=== PATIENT | female | born 1955 | race Caucasian/White ===

== ENCOUNTER 2018-08-19 08:03 | Emergency (ER) | payer MEDICARE, MEDICAID ==
[~2018-08-19] VITALS: Ht 152.4 cm; Wt 68.2 kg
[~2018-08-19 08:03] MED LIST: AMBIEN10 MG PO; AMLOPIDINE
[2018-08-19 08:11] VITALS: TEMP 98.5
[2018-08-19] MEDS ORDERED: NORVASC 5MG5 MG/TAB PO (08:33)
[2018-08-19] MEDS ORDERED: ROXICODONE 55 MG/TAB PO (08:34)
[2018-08-19] MEDS ORDERED: VALIUM 5MG T5 MG/TAB PO (08:34)
[2018-08-19] MEDS ORDERED: CATAPRES 0.1MG0.1 MG PO (08:35)
[2018-08-19] MEDS ORDERED: TENORMIN 5050 MG/TAB PO (08:36)
[2018-08-19] MEDS ORDERED: NEURONTIN300 MG/CAP PO (08:36)
[2018-08-19] MEDS ORDERED: AMBIEN 10MG10 MG PO (08:37)
[2018-08-19] MEDS ORDERED: SSD25 GM TP (08:39)
[2018-08-19 09:05] LABS: HEMATOCRIT 40.7 % (37.0-47.0); HEMOGLOBIN 12.7 g/dl (12.5-16.0); MEAN CELL VOLUME 92 fl (80.0-100.0); MEAN CORPUSCULAR HEMOGLOBIN 29 pg (27.0-31.0); MEAN CORPUSCULAR HGB CONC 31 g/dl (33.0-37.0); MEAN PLATELET VOLUME 9.2 fl (7.4-10.4); PLATELET COUNT 216 K/mm3 (130-400); RED BLOOD COUNT 4.45 M/mm3 (4.10-5.30); REDCELL DISTRIBUTION WIDTH-CV 13.3 % (11.5-14.5)
[2018-08-19 09:29] LABS: BILIRUBIN,TOTAL 0.3 mg/dL (0.0-1.0); C-REACTIVE PROTEIN 2.7 mg/dL (0.0-0.9); CALCIUM 9.3 mg/dL (8.4-10.2); CREATININE, serum 0.32 mg/dL (0.52-1.25); TOTAL PROTEIN 7.3 gm/dL (6.4-8.2)
[2018-08-19 09:55] LABS: BAND 4 % (0-10); EOSINOPHIL 1 % (0-4); LYMPHOCYTE 13 % (20.0-51.0); MYELOCYTE 1 % (0-0); NEUTROPHILS 75 % (42.0-75.2); PLATELET ESTIMATE NORMAL (NORMAL)
[2018-08-19 10:12] LABS: COLLECTION METHOD CLEAN CATCH
[2018-08-19 10:21] LABS: MUCOUS Present /lpf; PH 5 (5-8); SQUAMOUS EPITHELIAL 0-2 /hpf; URINE APPEARANCE Clear; URINE BACTERIA None Seen /hpf; URINE BILIRUBIN Negative (NEGATIVE); URINE BLOOD Negative (NEGATIVE); URINE COLOR Yellow; URINE GLUCOSE Negative (NEGATIVE); URINE KETONE Negative (NEGATIVE); URINE LEUKOCYTE ESTERASE Negative (NEGATIVE); URINE NITRATE Negative (NEGATIVE); URINE PROTEIN(semi-quant) Negative (NEGATIVE); URINE RBC 0-2 /hpf; URINE UROBILINOGEN Negative (NEGATIVE)
--- NOTE | 2018-08-19 11:57 | NUR ---
slab worker met with patient and son, Jose Antonio Gonzalez, to discuss care at home and options for a higher level of care. Currently, patient resides with her son and is approved for up to 37 1/2 hours of private duty care in the home. Patient has a chronic debilitating illness and has been confined to a wheelchair for ambulation since 2010. 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 Patient is currently receiving 25 hours of private duty a week, through the self directed care program/[facility]. Son states it is difficult to hire consistent help. Worker provided options for shelter care. Patient has medicare and medicaid. Son and patient state their preferences are 1. [facility] and 2. [facility]. It is there hope that patient can be transferred to [facility] so that patient can be treated and evaluated by her neurosurgeon, Dr Terrell Gibbons. Worker collaborated with Dr Gomez regarding the above information. Will await decision on admission to this hospital or [facility].
[2018-08-19 14:58] VITALS: BP 122/76; PULSE 74
== END 2018-08-19 16:40 | disposition short-term general hospital (02) ==
LOC: COL.ER 08:03
PROVIDERS: Emergency Medicine
DX: Q85.02 Neurofibromatosis, type 2 (principal); L89.90 Pressure ulcer of unspecified site, unspecified stage; D33.3 Benign neoplasm of cranial nerves; I63.9 Cerebral infarction, unspecified; G81.94 Hemiplegia, unspecified affecting left nondominant side
CPT/HCPCS: C1751

== ENCOUNTER 2018-10-19 16:35 | Emergency (ER) | payer MEDICARE, MEDICAID ==
[~2018-10-19] VITALS: Ht 160 cm; Wt 72.7 kg
[~2018-10-19 16:35] MED LIST changes: +AMBIEN 10MG10 MG PO; +CATAPRES 0.1MG0.1 MG PO; +LACRI LUBE1 OIN OS; +LEVAQUIN 5500 MG/TA1 PO; +LIORESAL 1010 MG/TAB PO; +NEURONTIN400 MG/CAP PO; +NORVASC 5MG5 MG/TAB PO; +REGLAN 5MG T5 MG/TAB PO; +ROXICODONE 55 MG/TAB PO; +SSD25 GM TP; +TENORMIN 2525 MG/TAB PO; +TYLENOL 8 HR PO; +VALIUM 5MG T5 MG/TAB PO
[2018-10-19 20:19] VITALS: BP 184/92; PULSE 88
== END 2018-10-19 20:24 | disposition home or self-care (01) ==
LOC: COL.ER 16:35
DX: R11.10 Vomiting, unspecified (principal); I69.359 Hemiplegia and hemiparesis following cerebral infarction affecting unspecified side; H91.3 Deaf nonspeaking, not elsewhere classified; Q85.00 Neurofibromatosis, unspecified; Z98.890 Other specified postprocedural states

== ENCOUNTER 2018-10-30 12:17 | Inpatient (IN) | payer MEDICARE, MEDICAID ==
[~2018-10-30] VITALS: Ht 160 cm; Wt 62.0 kg
[~2018-10-30 12:17] MED LIST changes: +AMOXICILLIN 8751 TAB PO; +DIFLUCAN200 MG PO; +DULCOLAX STOOL100 MG PO; +ZOFRAN 4MG T4 MG/TAB PO
[2018-10-30 12:56] LABS: HEMATOCRIT 42.9 % (37.0-47.0); HEMOGLOBIN 13.4 g/dl (12.5-16.0); MEAN CELL VOLUME 87 fl (80.0-100.0); MEAN CORPUSCULAR HEMOGLOBIN 27 pg (27.0-31.0); MEAN CORPUSCULAR HGB CONC 31 g/dl (33.0-37.0); MEAN PLATELET VOLUME 9.1 fl (7.4-10.4); PLATELET COUNT 358 K/mm3 (130-400); RED BLOOD COUNT 4.93 M/mm3 (4.10-5.30); REDCELL DISTRIBUTION WIDTH-CV 12.5 % (11.5-14.5)
[2018-10-30 13:09] LABS: ALBUMIN 3.8 gm/dL (3.5-5.0); BILIRUBIN,TOTAL 0.5 mg/dL (0.0-1.0); C-REACTIVE PROTEIN 0.9 mg/dL (0.0-0.9); CREATININE, serum 0.25 (0.52-1.25); POTASSIUM 3.7 mmol/L (3.4-5.0); TOTAL PROTEIN 6.9 gm/dL (6.4-8.2)
[2018-10-30 13:23] LABS: BASOPHIL 1 % (0-2); EOSINOPHIL 1 % (0-4); LYMPHOCYTE 12 % (20.0-51.0); NEUTROPHILS 78 % (42.0-75.2); PLATELET ESTIMATE NORMAL (NORMAL)
[2018-10-30 13:25] LABS: COLLECTION METHOD CLEAN CATCH
[2018-10-30 13:41] LABS: MUCOUS Present /lpf; PH 5 (5-8); SQUAMOUS EPITHELIAL 0-2 /hpf; URINE APPEARANCE Hazy; URINE BACTERIA Rare /hpf; URINE BILIRUBIN Negative (NEGATIVE); URINE BLOOD Negative (NEGATIVE); URINE COLOR Yellow; URINE GLUCOSE Negative (NEGATIVE); URINE KETONE 2+ (NEGATIVE); URINE LEUKOCYTE ESTERASE 2+ (NEGATIVE); URINE NITRATE Negative (NEGATIVE); URINE PROTEIN(semi-quant) Negative (NEGATIVE); URINE UROBILINOGEN Negative (NEGATIVE)
--- NOTE | 2018-10-30 17:31 | NUR ---
Patient up to room, son at bedside. Will complete assessment.
--- NOTE | 2018-10-30 18:00 | NUR ---
Assessment and admission complete. Patient son in room to assist with answering questions, he is DPOA. 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 Patient is full assist, trace movement of legs on bed, trace movement of left arm. Right arm can lift and weak squeeze. Contractures of fingers. Lungs diminished throughout. Heart RRR, on room air. 20g IV LFA is CDI, no complications, patent. Patient has stage I ulcer on coccyx, not open. Radial pulses strong bilaterally. BLE edema 1+. Bilateral hands edema 2+. Bowel sounds hypoactive. Patient is blind in left eye. Patient has soft touch call light. No vomiting since being up on floor. Patient requested half sprite and water. Tolerating well. Patient HOB elevated 45 degrees, does not tolerate HOB being lowered. No other needs at this time. Oriented to room, son will be leaving. Call light within reach.
[2018-10-30 19:52] VITALS: BP 172/99; PULSE 111; TEMP 98.2
[2018-10-30 20:00] VITALS: BP 173/98; PULSE 112; TEMP 98
--- NOTE | 2018-10-30 20:03 | NUR ---
REPORT GIVEN TO ALO ARVIZU. NO OTHER NEEDS AT THIS TIME.
[2018-10-30 20:32] VITALS: BP 172/99; PULSE 111; TEMP 98.2
--- NOTE | 2018-10-30 21:00 | NUR ---
SOAP SUDS ENEMA COMPLETED AT THIS TIME WITH 1000MLS OF WARM WATER. TOLERATED PROCEDURE WELL. RETAINED APPROX HALF OF FLUID UNTIL 2200. XTRA LARGE LOOSE WATERY STOOL. CONTINUES WITH C/O NAUSEA. NO VOMITING. DENIES C/O PAIN. NS AND MEDICATIONS ADMINISTERED ORDERED.
--- NOTE | 2018-10-30 23:45 | NUR ---
Labetalol 10mg IV administerd at this time for BP of 162/94. Patient denies c/aaliyah headache, soa or chest pain.
[2018-10-30 23:51] VITALS: BP 164/94; PULSE 92; TEMP 98.3
[2018-10-31 03:53] VITALS: BP 160/93; PULSE 86; TEMP 98.3
[2018-10-31 05:47] LABS: HEMOGLOBIN 11.6 g/dl (12.5-16.0); MEAN CELL VOLUME 87 fl (80.0-100.0); MEAN CORPUSCULAR HEMOGLOBIN 27 pg (27.0-31.0); MEAN CORPUSCULAR HGB CONC 31 g/dl (33.0-37.0); MEAN PLATELET VOLUME 9.4 fl (7.4-10.4); PLATELET COUNT 297 K/mm3 (130-400); RED BLOOD COUNT 4.27 M/mm3 (4.10-5.30); REDCELL DISTRIBUTION WIDTH-CV 12.3 % (11.5-14.5)
[2018-10-31 05:57] LABS: ANION GAP 10 mmol/L (7-16); BLOOD UREA NITROGEN 3 mg/dL (7-17); CALCIUM 8.4 mg/dL (8.4-10.2); CARBON DIOXIDE 27 mmol/L (22-30); CHLORIDE 102 mmol/L (98-107); CREATININE, serum 0.24 (0.52-1.25); GLUCOSE 106 mg/dL (74-106); MAGNESIUM 1.7 mg/dL (1.6-2.3); POTASSIUM 3.2 mmol/L (3.4-5.0); SODIUM 139 mmol/L (137-145)
[2018-10-31 06:09] LABS: TROPONIN-I < 0.012 ng/mL (0.000-0.035)
[2018-10-31 06:26] LABS: BAND 1 % (0-10); HYPOCHROMIA 2+; LYMPHOCYTE 12 % (20.0-51.0); NEUTROPHILS 79 % (42.0-75.2)
[2018-10-31 06:27] LABS: PLATELET ESTIMATE NORMAL (NORMAL)
[2018-10-31 07:09] VITALS: BP 164/89; PULSE 81; TEMP 98.3
--- NOTE | 2018-10-31 07:15 | NUR ---
Report received from ALO Burns. PT in bed resting, awakens easily when enters and utilizes tablet for communication. Requesting PRN nausea medicaiton, will provide and continue to monitor.
--- NOTE | 2018-10-31 10:08 | NUR ---
Assessment charted. PT in bed resting with nausea issues, fees stomach continues to cramp up and feel uncomfortable, nausea medication has not assisted in reducing nausea. Rolled to place mepilex and view sacrem and pt became erpy. Repositioned afterwards for comfort and applied warm wash cloth to L eye that is draining crusty yellow exudate. Had several bowel movemens last night but still feels poorly today. Bowel sounds hypoactive. Garcia drainin clear yellow urine. Grasps are very weak and fingers are slightly contracted but can be extended with assistance. IVF to LF. PRN labetalol provided for SBP >160. Will continue to monitor.
[2018-10-31 11:43] VITALS: BP 164/87; PULSE 77; TEMP 98.3
[2018-10-31 15:22] VITALS: BP 157/93; PULSE 77; TEMP 98.2
[2018-10-31] MEDS ORDERED: VALIUM 2MG T2 MG/TAB PO ×2 (17:34→17:35)
--- NOTE | 2018-10-31 17:35 | NUR ---
Pt had son visit this afternoon and evening, while son was here pt became nauseated and threw up a small amount of clear reddish fluid, eating red jello. Pt given PRN nausea medication and discussed plan of care with son. Son states she takes some anxiety medication at home as needed, discussed with Dr. Sharp, added meds and gave PRN anxiety meds to help patiet. Air mattress applied to bed as pt refusing turning d/t nausea. Will give bedside shift report to nightshift nurse who will resume care.
[2018-10-31 20:16] VITALS: BP 133/76; BP 33/76; PULSE 85; TEMP 98
--- NOTE | 2018-10-31 22:23 | NUR ---
PT IN BED, WITH HOB AT 45 DEGREE ANGLE. PT REFUSES TO BE TURNED, HAS AIR MATTRESS UNDER HER. PT HAS NO NEEDS AT THIS TIME. PT DROSY BUT IS EASILY AWAKENED. PT HAS LEFT SIDED WEAKNESS AND LEFT FACIAL DROOP, BUT PT ALSO WEAK ON RIGHT SIDE. PT HAS CALL LIGHT IN HAND.
[2018-10-31 23:16] VITALS: BP 139/89; PULSE 73; TEMP 98.6
[2018-11-01] VITALS (10 sets, daily range): BP systolic 113–167; BP diastolic 61–100; PULSE 67–84; TEMP 98.2–99
--- NOTE | 2018-11-01 05:07 | NUR ---
PT'S BP RECHECKED AND IT WENT DOWN TO 141/77. PT DENIES HAVING ANY NAUSEA OR VOMITING THIS SHIFT AND ALSO SHE WAS ASKED IF SHE WAS COL AND SHE ADVISED THAT SHE WAS COMFORTABLE RIGHT NOW. PT REFUSES TO BE REPOSITION. PT ADVISED THAT THAT IS WHY SHE HAS AN AIR MATTRESS SO SHE DOES NOT HAVE TO BE TURNED. NO BOWEL MOVEMENT SO FAR THIS SHIFT EITHER. PT DENIES PAIN OR DISCOMFORT AND HAS BEEN SLEEPING/RESTING WELL THIS NOC. CALL LIGHT WITHIN REACH.
--- NOTE | 2018-11-01 10:28 | NUR ---
SW attended clinical rounds to discuss discharge planning. Patient was discharge on 10/[address] [facility] for a skilled stay. WHITNEY contacted patient's son/DPOA, Jose Antonio, to inquire if returning to [facility] is the discharge plan. Jose Antonio reports that discharging to [facility] is the plan. SW completed choice form. Patient lives at home with her son, Jose Antonio. Patient's PCP is Dr Schilling and she obtains prescriptions from [facility]. Patient uses a wheelchair for mobility and her son reports that they are working on obtaining a lift. Patient does not currently use any home health services. Patient's DPOA is Jose Antonio and a copy is in the EMR. SW will fax updates to [facility].
--- NOTE | 2018-11-01 11:56 | NUR ---
Pt taken down for EGD procedure. Consent obtained pre procedure from pt and son, Roel LASSITER. Pt alert and oriented and catheter had clear yellow output at departure.
[2018-11-01 13:43] LABS: BASO # 0.1 (0.0-0.2); BASO % 0.7 % (0.0-2.0); EOS # 0.1 (0.0-0.7); EOS % 1.5 % (0-4.0); GRAN # 6.1 (1.4-6.5); GRAN % 64.4 % (42.2-75.2); HEMOGLOBIN 11.1 g/dl (12.5-16.0); LYMPH # 2.1 (1.2-3.4); LYMPH % 22.1 % (20.0-51.0); MEAN CELL VOLUME 87 fl (80.0-100.0); MEAN CORPUSCULAR HEMOGLOBIN 27 pg (27.0-31.0); MEAN CORPUSCULAR HGB CONC 31 g/dl (33.0-37.0); MEAN PLATELET VOLUME 9.4 fl (7.4-10.4); MONO # 0.9 (0.1-0.6); MONO % 9.9 % (1.7-9.3); PLATELET COUNT 242 K/mm3 (130-400); RED BLOOD COUNT 4.11 M/mm3 (4.10-5.30); REDCELL DISTRIBUTION WIDTH-CV 12.4 % (11.5-14.5)
[2018-11-01 13:44] LABS: HEMATOCRIT 35.6 % (37.0-47.0)
[2018-11-01 13:50] LABS: ANION GAP 10 mmol/L (7-16); CALCIUM 8.2 mg/dL (8.4-10.2); CARBON DIOXIDE 30 mmol/L (22-30); CHLORIDE 101 mmol/L (98-107); CREATININE, serum 0.23 (0.52-1.25); GLUCOSE 83 mg/dL (74-106); SODIUM 141 mmol/L (137-145)
[2018-11-01 13:52] LABS: BLOOD UREA NITROGEN < 2 mg/dL (7-17)
[2018-11-01 13:54] LABS: POTASSIUM 2.9 mmol/L (3.4-5.0)
--- NOTE | 2018-11-01 13:57 | NUR ---
Pt returned from EGD. Pt alert and oriented and ready to eat. Pt has post op vitals set up. Pt critical lab of potassium received and called to [facility]. Pt has potassium protocol ordered. Pt has call light in reach and sebastian patent of clear yellow urine.
--- NOTE | 2018-11-01 19:12 | NUR ---
Pt alert and oriented. Pt given 1dose roxycodone for pain and pain decreased to 2/10. Pt has son at bedside. Pt IV in LF and RF intact and patent. No redness or infiltration noted. Pt just had an episode of emesis. Pt consent signed for Gastric empty test in am. Pt son at bedside. Pt call light in reach and denies needs at this time. Pt denies nausea after emesis. Pt sebastian intact with clear yellow return.
--- NOTE | 2018-11-01 20:20 | NUR ---
Patient report received from ALO Shearer at bedside during shift report. Upon assessment at this time patient appears to be resting comfortably, son is at bedside. Patient denies n/v at this time, but did have one episode of emesis prior to shift change after taking a dose of oxycodone. Patient is currently getting NS and potassium runs through left forerm. Patient is to be NPO after MN for gastric emptying test around [address] draining clear pale yellow urine. Patient and son refused lovenox this evening, state that they would like to talk to MD about the need for lovenox. No other needs reported/observed at this time.
[2018-11-02 00:21] VITALS: BP 141/90; PULSE 86; TEMP 98.7
[2018-11-02 03:56] VITALS: BP 137/81; PULSE 86; TEMP 98.6
[2018-11-02 06:07] LABS: HEMATOCRIT 36.7 % (37.0-47.0); HEMOGLOBIN 11.4 g/dl (12.5-16.0); MEAN CELL VOLUME 87 fl (80.0-100.0); MEAN CORPUSCULAR HEMOGLOBIN 27 pg (27.0-31.0); MEAN CORPUSCULAR HGB CONC 31 g/dl (33.0-37.0); MEAN PLATELET VOLUME 9.9 fl (7.4-10.4); PLATELET COUNT 250 K/mm3 (130-400); RED BLOOD COUNT 4.22 M/mm3 (4.10-5.30); REDCELL DISTRIBUTION WIDTH-CV 12.4 % (11.5-14.5)
[2018-11-02 06:20] LABS: ANION GAP 8 mmol/L (7-16); CALCIUM 8.6 mg/dL (8.4-10.2); CARBON DIOXIDE 31 mmol/L (22-30); CHLORIDE 99 mmol/L (98-107); GLUCOSE 83 mg/dL (74-106); MAGNESIUM 1.6 mg/dL (1.6-2.3); POTASSIUM 3.7 mmol/L (3.4-5.0); SODIUM 139 mmol/L (137-145)
[2018-11-02 06:24] LABS: BLOOD UREA NITROGEN < 2 mg/dL (7-17)
[2018-11-02 06:40] LABS: BASOPHIL 1 % (0-2); EOSINOPHIL 2 % (0-4); LYMPHOCYTE 25 % (20.0-51.0); NEUTROPHILS 59 % (42.0-75.2); PLATELET ESTIMATE NORMAL (NORMAL)
--- NOTE | 2018-11-02 07:14 | NUR ---
Received report. Patient currently having gastric emptying study, left at 0650.
--- NOTE | 2018-11-02 07:29 | NUR ---
Patient report given to ALO Pope. Patient taken down to gastric emptying test prior to shift change. Patient will be off the floor for the entirety of the test, for 2.5 hours.
[2018-11-02 11:18] VITALS: BP 154/86; PULSE 83; TEMP 98.8
[2018-11-02 16:43] VITALS: BP 142/92; PULSE 91; TEMP 99.1
--- NOTE | 2018-11-02 19:30 | NUR ---
Patient is resting in bed with eyes closed. Son was at bedside earlier in the afternoon. He expressed concern with his mothers nutritional status as she has had little nutrition in the past 3 days. I did speak with PA regarding this and she asked that I call dietitian and have them get involved which they are already involved. They came to speak with her and the son. She did request some ice cream. Zofran was administered prior to intake and she ate 100% of it. Touch call light is behind right elbow and translation tablet is at bedside.
[2018-11-02 20:15] VITALS: BP 131/86; PULSE 84; TEMP 98.4
--- NOTE | 2018-11-02 21:13 | NUR ---
PT IN BED WITH HOB AT 30 DEGREE ANGLE, PT REFUSES TO BE TURNED. NO C/O N/V, PAIN OR DISCOMFORT AT THIS TIME. NO NEEDS CALL LIGHT WITHIN REACH.
[2018-11-02 23:46] VITALS: BP 121/65; PULSE 83; TEMP 98.9
--- NOTE | 2018-11-03 01:15 | NUR ---
UNEVENTFUL NIGHT, PT SLEEPING/RESTING IN BED AND HOB AT 30 DEGREE ANGLE. PT HAS NO S/S OF PAIN OR DISCOMFORT NOTED. PT HAS EVEN AND UNLABORED RESP AND SOFTLY SNORES. PT CONTINUES TO DECLINE TO BE REPOSITIONED. CALL LIGHT WITHIN REACH.
[2018-11-03 03:56] VITALS: BP 123/70; PULSE 81; TEMP 98.1
--- NOTE | 2018-11-03 05:02 | NUR ---
PT SLEEPING/RESTING WITH HOB ELEVATED TO 30 DEGREE ANGLE. UNEVENTFUL NIGHT, NO NAUSEA OR VOMITING. CALL LIGHT WITHIN REACH AND CHECK ON PT OFTEN.
--- NOTE | 2018-11-03 06:17 | NUR ---
PT WAS OFFERED TO REPOSITION, BUT PT REFUSES. PT TURNED AND MEPLEX STILL INTACT, NO BOWEL MOVEMENT OR NO NAUSEA OR VOMITING. CALL LIGHT WITHIN REACH.
[2018-11-03 07:27] VITALS: BP 119/66; PULSE 87; TEMP 98
[2018-11-03 08:29] LABS: ANION GAP 11 mmol/L (7-16); CALCIUM 8.6 mg/dL (8.4-10.2); CARBON DIOXIDE 30 mmol/L (22-30); CHLORIDE 100 mmol/L (98-107); CREATININE, serum 0.23 (0.52-1.25); GLUCOSE 87 mg/dL (74-106); MAGNESIUM 1.6 mg/dL (1.6-2.3); POTASSIUM 3.4 mmol/L (3.4-5.0); SODIUM 140 mmol/L (137-145)
--- NOTE | 2018-11-03 08:30 | NUR ---
Patient is resting in bed, eyes are closed. Was informed in report that patient would not reposition off of back during the night. Did wake patient for medication administration and offered repositioning and she declined stating she doesn't like being on her side. Patient was given medication with gatorade, she stated she wanted to drink the bare minimum so she did not get sick. Did tolerate what intake she took.
[2018-11-03 08:35] LABS: BLOOD UREA NITROGEN < 2 mg/dL (7-17)
[2018-11-03 08:41] LABS: BASO # 0.1 (0.0-0.2); BASO % 0.6 % (0.0-2.0); EOS # 0.2 (0.0-0.7); EOS % 1.8 % (0-4.0); GRAN % 68.1 % (42.2-75.2); HEMATOCRIT 38.1 % (37.0-47.0); HEMOGLOBIN 11.9 g/dl (12.5-16.0); LYMPH # 1.6 (1.2-3.4); LYMPH % 17.7 % (20.0-51.0); MEAN CELL VOLUME 86 fl (80.0-100.0); MEAN CORPUSCULAR HEMOGLOBIN 27 pg (27.0-31.0); MEAN CORPUSCULAR HGB CONC 31 g/dl (33.0-37.0); MEAN PLATELET VOLUME 10.1 fl (7.4-10.4); MONO # 0.9 (0.1-0.6); MONO % 10.7 % (1.7-9.3); PLATELET COUNT 232 K/mm3 (130-400); RED BLOOD COUNT 4.41 M/mm3 (4.10-5.30); REDCELL DISTRIBUTION WIDTH-CV 12.3 % (11.5-14.5)
--- NOTE | 2018-11-03 11:01 | NUR ---
Initial visit; Patient and Cafeteria Assistant were barely able to communicate. Cafeteria Assistant made the prayer sign and patient seemed to decline. Cafeteria Assistant will try again later.
[2018-11-03 11:19] VITALS: BP 124/82; PULSE 80; TEMP 97.5
--- NOTE | 2018-11-03 11:19 | NUR ---
SW informed that patient will possibly discharge tomorrow. SW will fax updates to [facility].
[2018-11-03 16:21] VITALS: BP 125/75; PULSE 88; TEMP 96.9
--- NOTE | 2018-11-03 18:35 | NUR ---
Patient is sitting up in bed with head slightly elevated. Son is at bedside, brought patient mashed potatoes from [facility], he kept other foods from tray for a variety. Patient did report that she felt her catheter felt funny. Tubing repositioned and began to flow. Call light is placed behind elbow.
--- NOTE | 2018-11-03 20:30 | NUR ---
Initial shift assessment done- denies pain- resting- visiting with son, taking po meds without problems, Tele on, IV fluids of NS at 100cc/hr- does not want to be repositioned at this time- Garcia with clear yellow urine
[2018-11-03 21:12] VITALS: BP 151/91; PULSE 87; TEMP 99.2
[2018-11-03 23:52] VITALS: BP 146/87; PULSE 92; TEMP 99.2
--- NOTE | 2018-11-04 02:03 | NUR ---
ASSUMED CARE FROM ALO MIGUEL. PT LAYING IN BED COMFORTABLY, NO COMPLAINTS AT THIS TIME. WILL CONTINUE MONITOR.
[2018-11-04 03:57] VITALS: BP 155/80; PULSE 88; TEMP 98.4
[2018-11-04 07:44] VITALS: PULSE 90
--- NOTE | 2018-11-04 07:58 | NUR ---
Pt assessment complete. Pt laying in bed upon entry, she currently denies any pain. No N/V at this time. Pt requesting to have an ensure for breakfast, does not want to try any other food at this time. Pt repositioned. PT in to work with patient at this time. Call light within reach. IVF infusing without complications.
[2018-11-04 08:31] LABS: BASO # 0.1 (0.0-0.2); BASO % 0.7 % (0.0-2.0); EOS # 0.3 (0.0-0.7); EOS % 2.8 % (0-4.0); GRAN % 66.6 % (42.2-75.2); HEMATOCRIT 38.1 % (37.0-47.0); LYMPH # 1.7 (1.2-3.4); MEAN CELL VOLUME 86 fl (80.0-100.0); MEAN CORPUSCULAR HEMOGLOBIN 27 pg (27.0-31.0); MEAN CORPUSCULAR HGB CONC 32 g/dl (33.0-37.0); MEAN PLATELET VOLUME 9.8 fl (7.4-10.4); MONO # 0.9 (0.1-0.6); MONO % 9.7 % (1.7-9.3); PLATELET COUNT 220 K/mm3 (130-400); RED BLOOD COUNT 4.45 M/mm3 (4.10-5.30); REDCELL DISTRIBUTION WIDTH-CV 12.4 % (11.5-14.5)
[2018-11-04 08:35] LABS: ANION GAP 8 mmol/L (7-16); CALCIUM 8.6 mg/dL (8.4-10.2); CARBON DIOXIDE 30 mmol/L (22-30); CHLORIDE 99 mmol/L (98-107); CREATININE, serum 0.23 (0.52-1.25); GLUCOSE 99 mg/dL (74-106); MAGNESIUM 1.5 mg/dL (1.6-2.3); POTASSIUM 3.6 mmol/L (3.4-5.0); SODIUM 137 mmol/L (137-145)
[2018-11-04 08:37] VITALS: BP 151/85; PULSE 82; TEMP 98.7
[2018-11-04 08:50] LABS: BLOOD UREA NITROGEN < 2 mg/dL (7-17)
--- NOTE | 2018-11-04 10:03 | NUR ---
SW attended clinical rounds. Patient will be switched to PO medications today. Patient will stay here today and possibly discharge tomorrow or Wednesday. SW will fax updates to [facility].
[2018-11-04 12:12] VITALS: BP 118/77; PULSE 83; TEMP 99
[2018-11-04 16:36] VITALS: BP 143/84; PULSE 90; TEMP 97.9
--- NOTE | 2018-11-04 18:45 | NUR ---
Pt had uneventful day. She slowly advanced diet eating more as the day went on. No N/V or diarrhea present. Occasional back pain reported. Repositioning offered throughout the day. Jose MENDEZ. Son at bedside at this time. Call light within reach.
[2018-11-04 20:35] VITALS: BP 118/69; PULSE 96; TEMP 99.4
--- NOTE | 2018-11-04 22:52 | NUR ---
Patient assessed around 194. Denied having pain and discomfort at that time. Alert and oriented, and able to make needs known. Patient is blind in the left eye, and deaf. Patient has a tablet in her room that types up what is said so that she can read it. Able to communicate very well with this. Patient's hands are puffy, and has 1+ edema to BLE. Peripheral IVs to left and right forearms. Both sites flushed, and are patent. Sites are without redness, warmth, swelling, and pain. LS CTA in upper lobes, diminished in lower lobes. Denies SOB and dyspnea. HRR. BSAx4. Indwelling sebastian catheter patent, and draining clear yellow urine via dependent drainage. Staff provide check, change, and repositioning every two hours. Has a stage 2 pressure ulcer to coccyx. Mepilex dressing to area is CDI. Denies having any needs or concerns at this time. Has soft touch call light by right hand as requested. Resting in bed with eyes closed at this time. Call light is within reach.
[2018-11-05] VITALS (7 sets, daily range): BP systolic 92–123; BP diastolic 60–77; PULSE 76–94; TEMP 98.1–99.2
--- NOTE | 2018-11-05 06:20 | NUR ---
Patient has been resting in bed with eyes closed most of the night. Denied having pain and discomfort when asked. Allowed staff to reposition in bed about every 2 hours from side to side. Mepilex to pressure ulcer on coccyx is CDI. Indwelling sebastian catheter patent, and draining clear yellow urine via dependent drainage. Has been drinking small sips of gatorade each time staff was in room. No complaints of nausea, and no vomiting this shift. Voices no questions, needs, or concerns. Resting in bed with eyes closed at this time. Call light is within reach.
--- NOTE | 2018-11-05 07:10 | NUR ---
Report given to day shift nurse.
[2018-11-05 07:28] LABS: HEMATOCRIT 38.8 % (37.0-47.0); HEMOGLOBIN 12.3 g/dl (12.5-16.0); MEAN CELL VOLUME 84 fl (80.0-100.0); MEAN CORPUSCULAR HEMOGLOBIN 27 pg (27.0-31.0); MEAN CORPUSCULAR HGB CONC 32 g/dl (33.0-37.0); MEAN PLATELET VOLUME 10.6 fl (7.4-10.4); PLATELET COUNT 161 K/mm3 (130-400); RED BLOOD COUNT 4.61 M/mm3 (4.10-5.30); REDCELL DISTRIBUTION WIDTH-CV 12.6 % (11.5-14.5)
[2018-11-05 07:38] LABS: CALCIUM 8.5 mg/dL (8.4-10.2); CREATININE, serum 0.2 (0.52-1.25); MAGNESIUM 2.3 mg/dL (1.6-2.3); POTASSIUM 4.2 mmol/L (3.4-5.0)
[2018-11-05 09:21] LABS: BAND 2 % (0-10); EOSINOPHIL 1 % (0-4); LYMPHOCYTE 20 % (20.0-51.0); NEUTROPHILS 73 % (42.0-75.2)
[2018-11-05 09:23] LABS: HYPOCHROMIA 1+; PLATELET ESTIMATE NORMAL (NORMAL)
--- NOTE | 2018-11-05 12:09 | NUR ---
Pt stable this am. Pt alert and oriented. Pt continues to communicate with voice to text on her IPAD without issue. Pt's son in today. Pt has sebastian patent with clear yellow output. Pt eating small amounts and encouraging fluid intake. Pt denies nausea. Pt has call pad in reach. Pt IV's patent and no redness or infiltration noted.
--- NOTE | 2018-11-05 19:20 | NUR ---
Pt report given to Phyllis PRAJAPATI.
--- NOTE | 2018-11-05 20:00 | NUR ---
Patient report received from ALO Shearer at shift change. Upon assessment at this time patient is sitting up with son at the bedside. Son is feeding patient dinner, tolerating well, denies n/v or pain. Son would like us to encourage food and drink throughout the night. No needs expressed or observed.
[2018-11-06 04:05] VITALS: BP 97/68; PULSE 74; TEMP 98.5
--- NOTE | 2018-11-06 05:40 | NUR ---
Patient report given to Saulo Burns. Patient has rested comfortably throughout the night.
[2018-11-06 07:16] LABS: CALCIUM 8.9 mg/dL (8.4-10.2); CREATININE, serum 0.23 (0.52-1.25); HEMATOCRIT 40.7 % (37.0-47.0); HEMOGLOBIN 12.8 g/dl (12.5-16.0); MAGNESIUM 2.3 mg/dL (1.6-2.3); MEAN CELL VOLUME 84 fl (80.0-100.0); MEAN CORPUSCULAR HEMOGLOBIN 27 pg (27.0-31.0); MEAN CORPUSCULAR HGB CONC 31 g/dl (33.0-37.0); MEAN PLATELET VOLUME 10.7 fl (7.4-10.4); PLATELET COUNT 137 K/mm3 (130-400); RED BLOOD COUNT 4.82 M/mm3 (4.10-5.30); REDCELL DISTRIBUTION WIDTH-CV 12.8 % (11.5-14.5)
[2018-11-06 08:45] VITALS: BP 99/63; PULSE 82; TEMP 98.2
[2018-11-06 09:43] LABS: BAND 1 % (0-10); EOSINOPHIL 1 % (0-4); HYPOCHROMIA 1+; LYMPHOCYTE 25 % (20.0-51.0); NEUTROPHILS 63 % (42.0-75.2); PLATELET ESTIMATE DECREASED (NORMAL)
[2018-11-06 11:09] VITALS: BP 99/61; PULSE 81; TEMP 98.5
--- NOTE | 2018-11-06 14:07 | NUR ---
Pt alert and oriented. Pt ate 2 chicken strips and mashed potatoes and gravy for lunch and tolerated without nausea. Pt sebastian patent with clear yellow urine. Pt repositioned every 2 hours. Pt's coccyx ulcer is healed. Pt denies pain at this time. Pt resting in bed with call light in reach. Pt has not had a BM at this time but given Miralax and Colace 200mg as ordered this am.
[2018-11-06 15:55] VITALS: BP 109/60; PULSE 87; TEMP 98.6
--- NOTE | 2018-11-06 18:15 | NUR ---
Pt alert and oriented and denies pain. Pt given suppository to help with having a BM. Pt sitting on bed bustos now. Pt has not had results yet. Pt's stool softner regime increased this shift but no results as of yet. Pt bowel sounds audible and pt passing gas. Pt tolerating food and drinking fluids well today without nausea. Pt sebastian patent with clear yellow return noted. Denisse cares provided this shift. Pt has call light in reach and denies needs.
--- NOTE | 2018-11-06 18:31 | NUR ---
Pt able to have a small brown bowel movement while laying on bed bustos. Pt denies pain or SOB. Pt's supper just arrived and aide asssisting pt with meal.
--- NOTE | 2018-11-06 19:16 | NUR ---
Pt report given to Marian PRAJAPATI and pt placed on bed bustos per request.
--- NOTE | 2018-11-06 20:30 | NUR ---
Initial shift assessment done- denies pain at this time- Garcia with good amount clear yellow urine, did use the bedpan and had small soft stool, drank 50% HS protein shake- son here visiting with patient
[2018-11-06 20:53] VITALS: BP 125/70; PULSE 93; TEMP 98.3
[2018-11-07 00:21] VITALS: BP 110/69; PULSE 91; TEMP 97.9
[2018-11-07 03:45] VITALS: BP 125/83; PULSE 92; TEMP 98.3
--- NOTE | 2018-11-07 06:39 | NUR ---
Quiet night- repositioned every 2-3 hours, just had the one stool at the beginning of the shift
--- NOTE | 2018-11-07 07:02 | NUR ---
Received report. Patient is resting on left side propped with pillow. She is resting with her eyes closed, respirations are even and non-labored. Facial expression is relaxed. Translation tablet is within view. Touch call light is available for patient to utilize with elbow.
[2018-11-07 07:43] VITALS: BP 122/77; PULSE 83; TEMP 97.8
[2018-11-07] MEDS ORDERED: ERY-TAB250 MG PO (10:19)
[2018-11-07] MEDS ORDERED: REGLAN 10MG10 MG/TAB PO (10:21)
[2018-11-07] MEDS ORDERED: MAG-OX 400400 MG/TAB PO (10:26)
[2018-11-07] MEDS ORDERED: COLACE 100100 MG/CAP PO (10:26)
[2018-11-07] MEDS ORDERED: TENORMIN 2525 MG/TAB PO (10:26)
[2018-11-07] MEDS ORDERED: DULCOLAX S10 MG/SUPP RC (10:26)
[2018-11-07] MEDS ORDERED: MIRALAX PA17 GM/Dose PO (10:27)
[2018-11-07] MEDS ORDERED: PROTONIX20 MG PO (10:27)
[2018-11-07] MEDS ORDERED: ROXICODONE 55 MG/TAB PO (10:28)
[2018-11-07] MEDS ORDERED: VALIUM 2MG T2 MG/TAB PO (10:28)
--- NOTE | 2018-11-07 10:53 | NUR ---
The patient is to discharge today, 11/07, back to [facility] for a skilled stay. Transportation was set for 1200, via [facility]. WHITNEY informed the patient and patient's nurse. They were both in agreeance. WHITNEY also contacted and informed the patient's son, Jose Antonio, of the patient discharging. The patient's son was in agreeance. WHITNEY also explained the IM form to the patient's son. The patient's son gave WHITNEY his verbal consent. No additional needs at this time.
--- NOTE | 2018-11-07 11:32 | NUR ---
First visit from the dinkey engine mechanic. No needs right now.
[2018-11-07 12:36] VITALS: BP 117/70; PULSE 80; TEMP 98.2
[2018-11-07 13:16] VITALS: BP 117/70; PULSE 80; TEMP 98.2
--- NOTE | 2018-11-07 13:53 | NUR ---
Patient discharged to [facility] via wheelchair. Facility transferred patient. Was able to transfer with 2 person transfer. Personal items sent with patient.
== END 2018-11-07 13:00 | DRG 699 ==
LOC: COL.ER 12:17 → MEDICAL 14:52
PROVIDERS: Family Medicine; Internal Medicine; Internal Medicine Gastroenterology; Nurse Practitioner Family; Physician Assistant; ADMIT Hospitalist
PROC: 0D738ZZ Dilation of Lower Esophagus, Via Natural or Artificial Opening Endoscopic (ICD-10-PCS; principal; 2018-11-01 12:15)
DX: T83.511A Infection and inflammatory reaction due to indwelling urethral catheter, initial encounter (principal); E87.4 Mixed disorder of acid-base balance; K31.84 Gastroparesis; N39.0 Urinary tract infection, site not specified; K22.2 Esophageal obstruction; Q85.00 Neurofibromatosis, unspecified; R11.2 Nausea with vomiting, unspecified; H54.62 Unqualified visual loss, left eye, normal vision right eye; K59.00 Constipation, unspecified; H91.8X3 Other specified hearing loss, bilateral; Z86.73 Personal history of transient ischemic attack (TIA), and cerebral infarction without residual deficits; I10 Essential (primary) hypertension; R53.81 Other malaise; L89.322 Pressure ulcer of left buttock, stage 2; L89.312 Pressure ulcer of right buttock, stage 2; E87.6 Hypokalemia; E83.42 Hypomagnesemia; R07.89 Other chest pain; R13.12 Dysphagia, oropharyngeal phase
CPT/HCPCS: 99223-AI; 99231-AI; 99232-AI; 99233-AI; 99239; A9541; C1726; C9113; G0378; J1650; J1956; J2060; J2405; J2550; J2704; J2765; J3475; J3480; J7030; Q9967

== ENCOUNTER → 2018-11-13 | Outpatient (CLI) | payer MEDICARE, MEDICAID ==
[~2018-11-13] MED LIST changes: +COLACE 100100 MG/CAP PO; +DULCOLAX S10 MG/SUPP RC; +ERY-TAB250 MG PO; +MAG-OX 400400 MG/TAB PO; +MIRALAX PA17 GM/Dose PO; +PROTONIX20 MG PO; +REGLAN 10MG10 MG/TAB PO; +VALIUM 2MG T2 MG/TAB PO
[2018-11-13 11:37] LABS: HEMATOCRIT 37.1 % (37.0-47.0); HEMOGLOBIN 11.6 g/dl (12.5-16.0); MEAN CELL VOLUME 86 fl (80.0-100.0); MEAN CORPUSCULAR HEMOGLOBIN 27 pg (27.0-31.0); MEAN CORPUSCULAR HGB CONC 31 g/dl (33.0-37.0); MEAN PLATELET VOLUME 9.6 fl (7.4-10.4); PLATELET COUNT 255 K/mm3 (130-400); RED BLOOD COUNT 4.33 M/mm3 (4.10-5.30)
[2018-11-13 11:43] LABS: CALCIUM 8.6 mg/dL (8.4-10.2); CREATININE, serum 0.2 (0.52-1.25); POTASSIUM 4.1 mmol/L (3.4-5.0)
[2018-11-13 12:43] LABS: BAND 6 % (0-10); EOSINOPHIL 1 % (0-4); LYMPHOCYTE 19 % (20.0-51.0); MICROCYTOSIS 1+; NEUTROPHILS 64 % (42.0-75.2); PLATELET ESTIMATE NORMAL (NORMAL)
== END ==
LOC: ZCOL.LAB 11:28
PROVIDERS: Family Medicine
DX: K31.84 Gastroparesis (principal)

== ENCOUNTER 2018-12-06 11:22 | Outpatient (CLI) | payer MEDICARE, MEDICAID ==
[2018-12-06 12:08] LABS: HEMATOCRIT 37.3 % (37.0-47.0); HEMOGLOBIN 11.2 g/dl (12.5-16.0); MEAN CELL VOLUME 86 fl (80.0-100.0); MEAN CORPUSCULAR HEMOGLOBIN 26 pg (27.0-31.0); MEAN CORPUSCULAR HGB CONC 30 g/dl (33.0-37.0); MEAN PLATELET VOLUME 9.3 fl (7.4-10.4); PLATELET COUNT 230 K/mm3 (130-400); RED BLOOD COUNT 4.33 M/mm3 (4.10-5.30); REDCELL DISTRIBUTION WIDTH-CV 13.7 % (11.5-14.5)
[2018-12-06 12:10] VITALS: BP 113/74; PULSE 85; TEMP 98.7
[2018-12-06 12:10] LABS: ALBUMIN 2.9 gm/dL (3.5-5.0); BILIRUBIN,TOTAL 0.4 mg/dL (0.0-1.0); CALCIUM 8.3 mg/dL (8.4-10.2); CREATININE, serum 0.21 (0.52-1.25); POTASSIUM 3.8 mmol/L (3.4-5.0); TOTAL PROTEIN 5.7 gm/dL (6.4-8.2)
[2018-12-06 12:37] LABS: EOSINOPHIL 2 % (0-4); LYMPHOCYTE 25 % (20.0-51.0); NEUTROPHILS 68 % (42.0-75.2); PLATELET ESTIMATE NORMAL (NORMAL)
[2018-12-06 14:01] LABS: PH 6 (5-8); SQUAMOUS EPITHELIAL 0-2 /hpf; URINE APPEARANCE Clear; URINE BACTERIA None Seen /hpf; URINE BILIRUBIN Negative (NEGATIVE); URINE BLOOD Negative (NEGATIVE); URINE COLOR Yellow; URINE GLUCOSE Negative (NEGATIVE); URINE KETONE Negative (NEGATIVE); URINE LEUKOCYTE ESTERASE 1+ (NEGATIVE); URINE NITRATE Negative (NEGATIVE); URINE PROTEIN(semi-quant) Negative (NEGATIVE); URINE RBC 0-2 /hpf; URINE UROBILINOGEN Negative (NEGATIVE)
[2018-12-06 14:30] VITALS: BP 100/63; PULSE 75
--- NOTE | 2018-12-06 14:37 | NUR ---
Attempted to call son to pick pt up. No answer/unable to leave message.
--- NOTE | 2018-12-06 15:45 | NUR ---
Pt unable to answer suicide questions.
--- NOTE | 2018-12-06 15:50 | NUR ---
Pt discharged per w/c with daughter in law.
[2018-12-08 11:39] LABS: COLLECTION METHOD CATHETER
== END 2018-12-06 16:12 | disposition home or self-care (01) ==
LOC: EUO 11:22
PROVIDERS: Family Medicine
DX: E86.0 Dehydration (principal); N39.0 Urinary tract infection, site not specified; J84.9 Interstitial pulmonary disease, unspecified
CPT/HCPCS: J7030

== ENCOUNTER 2018-12-09 13:42 | Emergency (ER) | payer MEDICARE, MEDICAID ==
[~2018-12-09] VITALS: Ht 160 cm; Wt 62.3 kg
[2018-12-09 13:50] VITALS: TEMP 97.9
[2018-12-09 15:00] LABS: COLLECTION METHOD CATHETER
[2018-12-09 15:34] LABS: HYALINE CAST >12 /lpf; MUCOUS Present /lpf; PH 6 (5-8); SQUAMOUS EPITHELIAL 0-2 /hpf; URINE APPEARANCE Hazy; URINE BACTERIA None Seen /hpf; URINE BILIRUBIN Negative (NEGATIVE); URINE BLOOD Negative (NEGATIVE); URINE COLOR Yellow; URINE GLUCOSE Negative (NEGATIVE); URINE KETONE 2+ (NEGATIVE); URINE LEUKOCYTE ESTERASE 2+ (NEGATIVE); URINE NITRATE Negative (NEGATIVE); URINE PROTEIN(semi-quant) Negative (NEGATIVE); URINE UROBILINOGEN Negative (NEGATIVE)
[2018-12-09 15:36] LABS: TRICYCLIC ANTIDEPRESS URINE NEGATIVE
[2018-12-09 16:18] LABS: BASO # 0.1 (0.0-0.2); BASO % 0.4 % (0.0-2.0); EOS % 0.1 % (0-4.0); GRAN # 12.3 (1.4-6.5); GRAN % 76.7 % (42.2-75.2); LYMPH # 1.9 (1.2-3.4); LYMPH % 11.7 % (20.0-51.0); MEAN CELL VOLUME 86 fl (80.0-100.0); MEAN CORPUSCULAR HEMOGLOBIN 26 pg (27.0-31.0); MEAN CORPUSCULAR HGB CONC 30 g/dl (33.0-37.0); MEAN PLATELET VOLUME 9.1 fl (7.4-10.4); MONO # 1.5 (0.1-0.6); MONO % 9.5 % (1.7-9.3); PLATELET COUNT 315 K/mm3 (130-400); RED BLOOD COUNT 4.66 M/mm3 (4.10-5.30); REDCELL DISTRIBUTION WIDTH-CV 13.7 % (11.5-14.5)
[2018-12-09 16:27] LABS: ALBUMIN 3.2 gm/dL (3.5-5.0); BILIRUBIN,TOTAL 0.5 mg/dL (0.0-1.0); CALCIUM 8.7 mg/dL (8.4-10.2); CREATININE, serum 0.21 (0.52-1.25); POTASSIUM 3.3 mmol/L (3.4-5.0); TOTAL PROTEIN 6.3 gm/dL (6.4-8.2)
[2018-12-09 17:28] VITALS: BP 155/88; PULSE 94
== END 2018-12-09 17:28 | disposition short-term general hospital (02) ==
LOC: COL.ER 13:42
PROVIDERS: Emergency Medicine
DX: G91.9 Hydrocephalus, unspecified (principal); G93.9 Disorder of brain, unspecified; Z86.73 Personal history of transient ischemic attack (TIA), and cerebral infarction without residual deficits
CPT/HCPCS: C1751; C1892; J2704; J3010; J7030; J7060